=== PATIENT | male | born 1980 | race Caucasian/White ===

== ENCOUNTER 2019-01-16 16:44 | Emergency (ER) | payer OTHER ==
[2019-01-16 17:01] VITALS: BP 140/91; PULSE 66; RESP 18; TEMP 97.8
[2019-01-16] MEDS ORDERED: KETOROLAC 60 MG/2 ML VIAL IM STA (17:52)
--- NOTE | 2019-01-16 18:16 | ED ---
General Adult HPI - General Chief complaint: Extremity Injury, Upper Stated complaint: Left Shoulder/Arm Pain Time Seen by Provider: 01/16/19 17:38 Source: patient, RN notes reviewed, old records reviewed Mode of arrival: ambulatory Limitations: no limitations - History of Present Illness Initial comments: 38-year-old male patient past history significant for chronic left shoulder pain presents to ED complaining of left shoulder pain. Patient reports that he believes that he may had a torn rotator cuff approximately 3 months ago. Patient reports that he rested at initially pain resolved. Patient was the yesterday he was working on his car changing a door. States that he had his arm and many awkward angles. Denies having left shoulder pain. Reports the pain feels the same as before. Denies any pain in any other areas. Denies any other complaints. Systemic: Pt denies fatigue, fever/chills, rash. Pt denies weakness, night sweats, weight loss. Neuro: Pt denies headache, visual disturbances, syncope or pre-syncope. HEENT: Pt denies ocular discharge or irritation, otalgia, rhinorrhea, pharyngitis or notable lymphadenopathy. Cardiopulmonary: Pt denies chest pain, SOB, heart palpitations, dyspnea on exertion. Abdominal/GI: Pt denies abdominal pain, n/v/d. : Pt denies dysuria, burning w/ urination, frequency/urgency. Denies new onset urinary or bowel incontinence. MSK: Pt denies myalgia, loss of strength or function in extremities. Neuro: Pt denies new onset weakness, paresthesias. - Related Data Allergies Allergy/AdvReac Type Severity Reaction Status Date / Time latex Allergy Rash/Hives Verified 01/16/19 16:58 Review of Systems ROS Statement: Those systems with pertinent positive or pertinent negative responses have been documented in the HPI. ROS Other: All systems not noted in ROS Statement are negative. Past Medical History Past Medical History: GERD/Reflux History of Any Multi-Drug Resistant Organisms: None Reported Past Surgical History: No Surgical Hx Reported Past Psychological History: Anxiety Smoking Status: Never smoker Past Alcohol Use History: Occasional Past Drug Use History: None Reported General Exam - General Exam Comments Initial Comments: Constitutional: NAD, AOX3, Pt has pleasant affect. HEENT: NC/AT, trachea midline, neck supple, no lymphadenopathy. Posterior pharynx non erythematous, without exudates. External ears appear normal, without discharge. Mucous membranes moist. Eyes PERRLA, EOM intact. There is no scleral icterus. No pallor noted. Cardiopulmonary: RRR, no murmurs, rubs or gallops, no JVD noted. Lungs CTAB in anterior and posterior morrell. No peripheral edema. Abdominal exam: Abdomen soft and non-distended. Abdomen non-tender to palpation in all 4 quadrants. Bowel sounds active in LLQ. No hepatosplenomegaly. No ecchymosis Neuro: CN II-XII grossly intact. No nuchal rigidity. No raccon eyes, no dvaid sign, no hemotympanum. No cervical spinal tenderness. MSK: Full active range of motion in left upper extremity. Painful arc positive. empty can test positive. Mildly tender anteriorly. Neurovascularly intact. No posterior calf tenderness bilaterally, homans sign negative bilaterally. Posterior tibialis and radial pulse +2 bilaterally. Sensation intact in upper and lower extremities. Full active ROM in upper and lower extremities, 5/5 stregnth. Limitations: no limitations Course Vital Signs 01/16/19 16:59 Temperature 97.8 F Pulse Rate 66 Respiratory 18 Rate Blood Pressure 140/91 O2 Sat by Pulse 98 Oximetry Medical Decision Making - Medical Decision Making 38-year-old male patient past history significant for chronic left shoulder pain presents to ED complaining of left shoulder pain. Patient reports that he believes that he may had a torn rotator cuff approximately 3 months ago. Patient reports that he rested at initially pain resolved. Patient was the yesterday he was working on his car changing a door. States that he had his arm and many awkward angles. Denies having left shoulder pain. Reports the pain feels the same as before. Denies any pain in any other areas. Denies any other complaints. Patient vital signs stable, afebrile. Physical exam displayed: Full active range of motion in left upper extremity. Painful arc positive. empty can test positive. Mildly tender anteriorly. Neurovascularly intact. Plain film shoulder is negative. Patient likely has rotator cuff dysfunction. Will be discharged. Follow up with primary care provider will return to ER if condition worsens. Case discussed with Dr. Rodriguez. Disposition Clinical Impression: Shoulder sprain Disposition: HOME SELF-CARE Condition: Stable Instructions (If sedation given, give patient instructions): Shoulder Sprain (ED) Additional Instructions: Follow-up with primary care provider tomorrow. Follow-up orthopedic consult tomorrow. Use Tylenol and Motrin as needed for pain. Return to ER if condition worsens. Is patient prescribed a controlled substance at d/c from ED?: No Referrals: Nas Duque MD [Primary Care Provider] - 1-2 days Kaiden Paz DO [Doctor of Osteopathic Medicine] - 1-2 days
--- NOTE | 2019-01-16 18:51 | XR ---
EXAMINATION TYPE: XR shoulder complete LT DATE OF EXAM: 01/16/2019 CLINICAL HISTORY: Pain TECHNIQUE: Three views of the left shoulder are obtained. COMPARISON: None. FINDINGS: No fracture. Glenohumeral and acromioclavicular joints are congruent. Joint spaces are main tained. IMPRESSION: No acute fracture or dislocation.
== END 2019-01-16 19:57 | disposition home or self-care (01) ==
LOC: EC 16:44 → SUPCPDRO 16:44 → EC 19:57
DX: S43.402A Unspecified sprain of left shoulder joint, initial encounter (principal); Z91.040 Latex allergy status; X50.1XXA Overexertion from prolonged static or awkward postures, initial encounter; Y93.89 Activity, other specified
CPT/HCPCS: 73030; 99284; 96372; J1885

== ENCOUNTER 2020-05-04 20:27 | Emergency (ER) | payer OTHER ==
--- NOTE | 2020-05-04 21:57 | XR ---
EXAMINATION TYPE: XR chest 2V DATE OF EXAM: 05/04/2020 COMPARISON: NONE HISTORY: Cough. TECHNIQUE: Frontal and lateral views of the chest are obtained. FINDINGS: There are mild to moderate perihilar and bibasilar opacities. No pleural effusion, or pneu mothorax seen. The cardiac silhouette size is within normal limits. The osseous structures are int act. IMPRESSION: Bilateral infiltrates.
[2020-05-04 22:04] VITALS: RESP 19
[2020-05-04] MEDS ORDERED: AZITHROMYCIN 500 MG TAB PO STA (22:12)
--- NOTE | 2020-05-04 22:12 | ED ---
General Adult HPI - General Chief complaint: Upper Respiratory Infection Stated complaint: Bad cough Time Seen by Provider: 05/04/20 22:00 Source: patient Mode of arrival: ambulatory Limitations: no limitations - History of Present Illness Initial comments: Dictation was produced using [email or web address] dictation software. please excuse any grammatical, word or spelling errors. This patient was cared for during a federal and state declared state of emergency secondary to Covid 19 Chief Complaint: 40-year-old male whose been having Covid 19 symptoms for the last 2 weeks presents with persistent cough History of Present Illness: 40-year-old male he was diagnosed with Covid approximately 2 weeks ago. He's been persistently sick for the last 2 weeks. Patient has shortness of breath. He states that overall his symptoms are slightly improving however he has this lingering persistent cough. Primary care physician provided patient with prednisone pack. Still having low-grade temperatures. Patient takes medications for depression. Has no other medical history. States that whenever he tries to walk around his cough gets worse. He has no pleuritic chest pain. Has no history of blood clot. The ROS documented in this emergency department record has been reviewed and confirmed by me. Those systems with pertinent positive or negative responses have been documented in the HPI. All other systems are other negative and/or noncontributory. PHYSICAL EXAM: General Impression: Alert and oriented x3, not in acute distress HEENT: Normocephalic atraumatic, extra-ocular movements intact, pupils equal and reactive to light bilaterally, mucous membranes moist. Cardiovascular: Heart regular rate and rhythm Chest: Able to complete full sentences, no retractions, no tachypnea, clear to auscultation bilaterally Abdomen: abdomen soft, non-tender, non-distended, no organomegaly Musculoskeletal: Pulses present and equal in all extremities, no peripheral edema Motor: no focal deficits noted Neurological: CN II-XII grossly intact, no focal motor or sensory deficits noted Skin: Intact with no visualized rashes Psych: Normal affect and mood ED course: 40-year-old male presents with persistent cough. Tested positive for Covid 19 approximately 2 weeks ago. Still having mild symptoms. Overall he is improved. He is currently on prednisone therapy provided by his primary care physician. At rest patient's oxygen saturations are normal. Ambulatory pulse ox was 90- 92%. Patient still not severely hypoxic enough to warrant admission. His x-ray shows bilateral infiltrates. Patient given Zithromax. He is currently on steroids that he is urged to continue taking. Patient also given an inhaler. His pulse oximeter home. Patient is agreeable to discharge. He'll return if he has any worsening symptoms. - Related Data Previous Rx's Medication Instructions Recorded Albuterol Sulfate [Proair Hfa] 1 - 2 puff INHALATION Q6HR PRN #1 05/04/20 inhaler Azithromycin [Zithromax Z-pack] 0 mg PO DIRECTED #6 tab 05/04/20 Allergies Allergy/AdvReac Type Severity Reaction Status Date / Time latex Allergy Rash/Hives Verified 05/04/20 21:19 Review of Systems ROS Statement: Those systems with pertinent positive or pertinent negative responses have been documented in the HPI. ROS Other: All systems not noted in ROS Statement are negative. Past Medical History Past Medical History: GERD/Reflux History of Any Multi-Drug Resistant Organisms: None Reported Past Surgical History: No Surgical Hx Reported Past Psychological History: Anxiety Smoking Status: Never smoker Past Alcohol Use History: Occasional Past Drug Use History: None Reported General Exam Limitations: no limitations Course Vital Signs 05/04/20 05/04/20 21:15 22:01 Temperature 100.3 F H Pulse Rate 99 Respiratory 18 19 Rate Blood Pressure 114/82 O2 Sat by Pulse 94 L Oximetry Disposition Clinical Impression: COVID-19 Disposition: HOME SELF-CARE Condition: Fair Instructions (If sedation given, give patient instructions): Viral Pneumonia (ED) Additional Instructions: Today you were evaluated for symptoms consistent with upper respiratory infection. Today you evaluated for Covid 19. Your are stable for discharge, however it is instructed to to seek immediate medical attention especially if you develop worsening symptoms especially respiratory distress. If possible, try to obtain a pulse oximeter and monitor your oxygen at home. In the meantime please remain in quarantine for 14 days. For any other questions please contact [facility] for here in emergency department or [facility] at [phone] Prescriptions: Albuterol Sulfate [Proair Hfa] 1 - 2 puff INHALATION Q6HR PRN #1 inhaler PRN Reason: Dyspnea Azithromycin [Zithromax Z-pack] 0 mg PO DIRECTED #6 tab Is patient prescribed a controlled substance at d/c from ED?: No Referrals: Joe Sears NPC [Primary Care Provider] - 1-2 days Time of Disposition: 22:41
[2020-05-04 22:56] VITALS: BP 137/71; PULSE 70; TEMP 100.1
== END 2020-05-04 22:56 | disposition home or self-care (01) ==
LOC: EC 20:27
DX: U07.1 COVID-19 (principal); K21.9 Gastro-esophageal reflux disease without esophagitis; F41.9 Anxiety disorder, unspecified; F32.9 Major depressive disorder, single episode, unspecified
CPT/HCPCS: 71046; 99285

== ENCOUNTER 2020-05-05 19:54 | Emergency (ER) | payer OTHER ==
[2020-05-05 20:05] VITALS: BP 108/75; PULSE 83; RESP 18; TEMP 99
[2020-05-05] MEDS ORDERED: diphenhydrAMINE 50 MG CAP PO STA (20:48)
[2020-05-05] MEDS ORDERED: AMOXIC-POT CLAV 875MG STARTER PACK 2 TAB BTL PO STA (20:48)
--- NOTE | 2020-05-05 20:55 | ED ---
General Adult HPI - General Chief complaint: Skin/Abscess/Foreign Body Stated complaint: Rash,Covid Time Seen by Provider: 05/05/20 19:58 Source: patient Mode of arrival: ambulatory Limitations: no limitations - History of Present Illness Initial comments: 40-year-old male with a past medical history of GERD, hypertension presents to the emergency room for chief complaint of rash. Patient reports that he developed a rash yesterday. It is on his arms and legs as well as his abdomen. Patient states it is itchy. Patient reports he was seen in the ER as he is Covid-positive yesterday was started on azithromycin. States he took his first dose yesterday and then developed a rash today. Patient denies any swelling of the lips tongue or throat.Patient has no other complaints at this time including shortness of breath, chest pain, abdominal pain, nausea or vomiting, headache, or visual changes. - Related Data Previous Rx's Medication Instructions Recorded Albuterol Sulfate [Proair Hfa] 1 - 2 puff INHALATION Q6HR PRN #1 05/04/20 inhaler Azithromycin [Zithromax Z-pack] 0 mg PO DIRECTED #6 tab 05/04/20 Amoxicillin/Potassium Clav 1 tab PO Q12HR #20 tab 05/05/20 [Augmentin 875-125 Tablet] Allergies Allergy/AdvReac Type Severity Reaction Status Date / Time latex Allergy Rash/Hives Verified 05/05/20 20:04 Review of Systems ROS Statement: Those systems with pertinent positive or pertinent negative responses have been documented in the HPI. ROS Other: All systems not noted in ROS Statement are negative. Past Medical History Past Medical History: GERD/Reflux History of Any Multi-Drug Resistant Organisms: None Reported Past Surgical History: No Surgical Hx Reported Past Psychological History: Anxiety Smoking Status: Never smoker Past Alcohol Use History: Occasional Past Drug Use History: None Reported General Exam Limitations: no limitations General appearance: alert, in no apparent distress Head exam: Present: atraumatic, normocephalic, normal inspection Eye exam: Present: normal appearance, PERRL, EOMI. Absent: scleral icterus, conjunctival injection, periorbital swelling ENT exam: Present: normal exam, normal oropharynx (No edema of the lips tongue or throat), mucous membranes moist Neck exam: Present: normal inspection, full ROM. Absent: tenderness, meningismus, lymphadenopathy Respiratory exam: Present: normal lung sounds bilaterally. Absent: respiratory distress, wheezes, rales, rhonchi, stridor Cardiovascular Exam: Present: regular rate, normal rhythm, normal heart sounds. Absent: systolic murmur, diastolic murmur, rubs, gallop, clicks GI/Abdominal exam: Present: soft, normal bowel sounds. Absent: distended, tenderness, guarding, rebound, rigid Extremities exam: Present: other (Patient has erythematous papular rash noted to arms legs and torso. Consistent with urticaria. Slightly on the abdomen as well.) Neurological exam: Present: alert Course Vital Signs 05/05/20 20:02 Temperature 99 F Pulse Rate 83 Respiratory 18 Rate Blood Pressure 108/75 O2 Sat by Pulse 94 L Oximetry Medical Decision Making - Medical Decision Making Vitals are stable. Patient is well appearing. He is 94% on room air. Patient states that shortness of breath feels much improved compared to yesterday. I did review patient's visit from yesterday he did have a bilateral pneumonia. This is could be related to patient's Covid-positive status from positive test 12 days ago. However it could also be related to azithromycin. We will start patient on Benadryl and change his antibiotic. I did discuss his case with Dr. Wyatt who recommends Augmentin. Patient will be discharged home with strict return parameters. Disposition Clinical Impression: COVID-19 Disposition: HOME SELF-CARE Condition: Good Instructions (If sedation given, give patient instructions): Coronavirus Disease 2019 (COVID-19) Additional Instructions: Please discontinue azithromycin and take Augmentin instead. Take Benadryl up to 4 times per day[address] Do not drive upper machinery while taking Benadryl as this could make you drowsy. Avoid hot showers/baths or heavy blankets or clothing as this could make your rash worse. Follow-up with your doctor in one to 2 days. Return to the emergency room for any worsening symptoms including worsening rash or swelling of the lips tongue or throat. Prescriptions: Amoxicillin/Potassium Clav [Augmentin 875-125 Tablet] 1 tab PO Q12HR #20 tab Is patient prescribed a controlled substance at d/c from ED?: No Referrals: Joe Sears NPC [Primary Care Provider] - 1-2 days
== END 2020-05-05 21:02 | disposition home or self-care (01) ==
LOC: EC 19:54
DX: U07.1 COVID-19 (principal); I10 Essential (primary) hypertension; K21.9 Gastro-esophageal reflux disease without esophagitis; F41.9 Anxiety disorder, unspecified
CPT/HCPCS: 99282